=== PATIENT | female | born 1975 | race Hispanic/Latino ===

== ENCOUNTER 2023-10-07 18:36 | Emergency (ER) | payer BC ==
--- NOTE | 2023-10-07 19:20 | EDPHYS ---
Physician Documentation [facility] Name: Ara Grimes Age: 48 yrs Sex: Female : 1975 Arrival Date: 10/07/2023 Time: 18:36 Bed IW5 Private MD: ED Physician Bruce King HPI: 10/06 19:21 This 48 yrs old Female presents to ER via Ambulatory with complaints of Ankle ec2 Injury. 19:21 Patient arrives today for right ankle injury. States there is ago she was walking ec2 subsequently twisted her ankle. Denies any falls injuries or trauma, is having some issues with weightbearing however has been able to tolerate.. Historical: - Allergies: 19:16 No Known Allergies; ss - Home Meds: 19:16 Wellbutrin Oral daily [Active]; ss - PMHx: 19:16 breast CA; ss - PSHx: 19:16 R lumpectomy; ss - Immunization history:: Client reports receiving the 1st dose of the Covid vaccine. - Infectious Disease History:: Denies. - Social history:: Smoking status: Patient denies any tobacco usage or history of. ROS: 19:21 Constitutional: as per hpi ec2 Exam: 19:21 Constitutional: GEN: NAD Head: atraumatic Eyes: EOMI Ears: External ears are ec2 normal. CV: regular rate LUNGS: no respiratory distress ABD: non-distended SKIN: no evidence of rashes MSK: Right lateral malleolus with TTP, surrounding swelling and ecchymosis noted, intact distal neurovascular status. NEURO: moves all extremities equally Vital Signs: 19:14 BP 109 / 88; Pulse 95; Resp 16; Temp 98.2(TE); Pulse Ox 99% on R/A; Weight 56.7 kg; ss Height 4 ft. 11 in. ; Pain 6/10; 19:14 Body Mass Index 25.25 (56.70 kg, 149.86 cm) ss 19:14 Pain Scale: Adult ss MDM: 19:07 Patient medically screened. ec2 19:21 Data reviewed: vital signs. ED course: Patient arrives today for evaluation of right ec2 ankle pain after a twist several days ago. Examination remarkable for MSK findings as above. Ankle x-ray independently reviewed and interpreted by me, shows no evidence of bony fracture, suspect ligamentous injury, apply Juan Luis wrap, discharge patient and have her follow-up with her primary care doctor. Instructed on [id number] medications. Return precautions given. . 10/06 18:42 Order name: Ankle Right 3 View XRAY ec2 10/06 19:07 Order name: Juan Luis Wrap; Complete Time: 19:20 ec2 Administered Medications: No medications were administered Disposition Summary: 10/07/23 19:20 Discharge Ordered Notes: Location: Home ec2 Condition: Stable ec2 Diagnosis - Sprain of ankle ec2 Followup: ec2 - With: Private Physician - When: - Reason: Re-evaluation by your physician Discharge Instructions: - Discharge Summary Sheet ss - Ankle Sprain, [id number] ec2 Forms: - Work release form ss - Medication Reconciliation Form ec2 - Antibiotic Education ec2 - Prescription Opioid Use ec2 - Patient Portal Instructions ec2 - Leadership Thank You Letter ec2 Signatures: Dispatcher [employer] Michelle Clemons RN RN Bruce King MD MD ec2 Corrections: (The following items were deleted from the chart) 19:20 19:08 Crutches ordered. ec2 ec2
--- NOTE | 2023-10-07 19:20 | ER ---
Nurse's Notes [facility] Name: Ara Grimes Age: 48 yrs Sex: Female : 1975 Arrival Date: 10/07/2023 Time: 18:36 Bed IW5 Private MD: Diagnosis: Sprain of ankle Presentation: 10/06 19:14 Chief complaint: Patient states: R ankle pain that began after rolling it on a curb 2-3 ss days ago. Coronavirus screen: Client denies travel out of the [place] in the last 14 days. Ebola Screen: Patient denies exposure to infectious person. Patient denies travel to an Ebola-affected area in the 21 days before illness onset. Initial Sepsis Screen: Does the patient meet any 2 criteria? No. Patient's initial sepsis screen is negative. Does the patient have a suspected source of infection? No. Patient's initial sepsis screen is negative. Risk Assessment: Do you want to hurt yourself or someone else? Patient reports no desire to harm self or others. Onset of symptoms was October 04, 2023. 19:14 Method Of Arrival: Ambulatory ss 19:14 Acuity: RAUL 4 ss Historical: - Allergies: 19:16 No Known Allergies; ss - Home Meds: 19:16 Wellbutrin Oral daily [Active]; ss - PMHx: 19:16 breast CA; ss - PSHx: 19:16 R lumpectomy; ss - Immunization history:: Client reports receiving the 1st dose of the Covid vaccine. - Infectious Disease History:: Denies. - Social history:: Smoking status: Patient denies any tobacco usage or history of. Screenin:20 [facility] ED Fall Risk Assessment (Adult) History of falling in the last 3 months, ss including since admission Yes- single mechanical fall (1 pt) Confusion or Disorientation No (0 pts) Intoxicated or Sedated No (0 pts) Impaired Gait No (0 pts) Mobility Assist Device Used No (0 pt) Altered Elimination No (0 pt) Score/Fall Risk Level 0 - 2 = Low Risk Oriented to surroundings, Maintained a safe environment. Abuse screen: Denies threats or abuse. Denies injuries from another. Nutritional screening: No deficits noted. Tuberculosis screening: Never had TB. Assessment: 19:18 General: Appears in no apparent distress. comfortable, Behavior is calm, cooperative. ss General: ambulatory with steady gait. Pain: Complains of pain in R ankle Pain currently is 6 out of 10 on a pain scale. Quality of pain is described as aching, tender. Neuro: Level of Consciousness is awake, alert, obeys commands. Respiratory: Airway is patent Respiratory effort is even, unlabored, Respiratory pattern is regular, symmetrical. Derm: Skin is intact, is healthy with good turgor, Skin is pink, warm \T\ dry. normal. Musculoskeletal: Circulation, motion, and sensation intact. Range of motion: intact in all extremities, Swelling present in R ankle. Vital Signs: 19:14 BP 109 / 88; Pulse 95; Resp 16; Temp 98.2(TE); Pulse Ox 99% on R/A; Weight 56.7 kg; ss Height 4 ft. 11 in. ; Pain 6/10; 19:14 Body Mass Index 25.25 (56.70 kg, 149.86 cm) ss 19:14 Pain Scale: Adult ED Course: 18:40 Patient arrived in ED. mr 18:41 Bruce King MD is Attending Physician. ec2 18:57 Ankle Right 3 View XRAY In Process Unspecified. EDMS 19:16 Triage completed. ss 19:16 Arm band placed on right wrist. ss 19:20 Patient has correct armband on for positive identification. ss 19:20 No provider procedures requiring assistance completed. Patient did not have IV access ss during this emergency room visit. Juan Luis wrap to right ankle. Administered Medications: No medications were administered Outcome: 19:20 Discharge ordered by . ec2 19:30 Discharged to home ambulatory, ss 19:30 Condition: good 19:30 Discharge instructions given to patient, Instructed on discharge instructions, follow up and referral plans. Demonstrated understanding of instructions, follow-up care, 19:30 Patient left the ED. Signatures: Dispatcher [employer] EDTN Yaneth Traore, Reg Reg Michelle Coulter, RN RN Bruce King MD MD ec2
--- NOTE | 2023-10-07 19:34 | RAD REPORT ---
EXAM DESCRIPTION: RAD - Ankle Right 3 View - 10/07/2023 6:55 pm CLINICAL HISTORY: ankle injury COMPARISON: No comparisons TECHNIQUE: Right ankle, 3 views. FINDINGS: No fracture, dislocation or periosteal reaction. No joint effusion seen. No joint space na rrowing. Small calcaneal spur. No soft tissue abnormality. IMPRESSION: No acute osseous abnormality. Small calcaneal spur.
[2023-10-07 20:17] VITALS: BP 109/88; TEMP 98.2; O2SAT 99
== END 2023-10-07 19:30 | disposition home or self-care (01) ==
LOC: ER 18:36
DX: S93.401A Sprain of unspecified ligament of right ankle, initial encounter (principal)
CPT/HCPCS: 99283